=== PATIENT | male | born 1970 | race Caucasian/White ===

== ENCOUNTER 2017-12-27 08:12 | Inpatient (IN) | payer OTHER ==
[~2017-12-27] VITALS: Ht 167.6 cm; Wt 83.1 kg
[2017-12-27 08:56] LABS: BASOPHIL % 0.4 % (0-2); PLATELET COUNT 268 x10^3mcL (130-400); RED CELL DISTRIBUTION WIDTH 14.5 % (11.5-14.5)
[2017-12-27 09:30] LABS: T3 TOTAL 1.07 ng/mL
[2017-12-27 09:46] LABS: FREE T4 1.41 ng/dL (0.76-1.46); FREE THYROXINE INDEX 3.7 ug/dL (1.4-4.5); T4(THYROXINE) 9.8 ug/dL (4.7-13.3)
[2017-12-27 09:58] LABS: ALKALINE PHOSPHATASE 72 U/L (46-116); ALT/SGPT 12 U/L (16-63); AST/SGOT 16 U/L (15-37); BILIRUBIN TOTAL 0.19 mg/dL (0.20-1.00); CALCIUM 8.4 mg/dL (8.5-10.1); CARBON DIOXIDE 26.2 mmol/L (21-32); CHLORIDE SERUM 105 mmol/L (98-107); CREATININE SERUM 0.5 mg/dL (0.7-1.3); GFR1 > 60 mL/min; GLUCOSE SERUM 87 mg/dL (74-106); HDL CHOLESTEROL 42 mg/dL (40-60); LIPASE 147 IU/L (73-393); POTASSIUM SERUM 4.1 mmol/L (3.5-5.1); SODIUM SERUM 141 mmol/L (136-145); TOTAL PROTEIN, SERUM 7.1 g/dL (6.4-8.2); TRIGLYCERIDES 78 mg/dL (<150)
[2017-12-27 10:05] LABS: ALBUMIN 3.3 g/dL (3.4-5.0); CHOLESTEROL 105 mg/dL (<200); CHOLESTEROL/HDL RATIO 2.5
[2017-12-27] MEDS ORDERED: GABAPENTIN100 M2 PO (10:38)
[2017-12-27] MEDS ORDERED: ACETAMINOPHEN-H1 TA1 PO (10:39)
[2017-12-27] MEDS ORDERED: FOL1 PO (10:40)
[2017-12-27] MEDS ORDERED: ZESTRIL5 MG PO (10:40)
[2017-12-27] MEDS ORDERED: CARVEDILOL3.125 M1 PO (10:40)
[2017-12-27] MEDS ORDERED: ATORVASTATIN CA40 M1 PO (10:41)
[2017-12-27] MEDS ORDERED: ASPIR 8181 MG PO (10:41)
[2017-12-27] MEDS ORDERED: BRILINTA90 M1 PO (10:41)
[2017-12-27] MEDS ORDERED: GOOD NEIGHBOR P20 M2 PO (10:42)
[2017-12-27] MEDS ORDERED: PREDNISONE1 MG PO (10:43)
[2017-12-27 10:54] LABS: microscopic required? NO
[2017-12-27 11:28] VITALS: BP 119/71
[2017-12-27 11:34] VITALS: BP 119/71
[2017-12-27 11:39] LABS: MAGNESIUM 1.8 mg/dL (1.8-2.4); PHOSPHOROUS 3.7 mg/dL (2.5-4.9)
[2017-12-27 11:58] LABS: AMPHETAMINE QUAL UR NONE DETECTED (NEG <=1000)
[2017-12-27 12:26] LABS: UA SPECIFIC GRAVITY 1.015 (1.005-1.035); urine erythrocyte NEGATIVE (NEGATIVE)
[2017-12-27 12:45] VITALS: BP 156/97
[2017-12-27 17:54] VITALS: BP 111/65
[2017-12-27 21:44] VITALS: BP 111/69
[2017-12-28] VITALS (12 sets, daily range): BP systolic 97–120; BP diastolic 55–77; Ht 167.6 cm; Wt 83.1 kg
[2017-12-28 07:10] LABS: CALCIUM 8.1 mg/dL (8.5-10.1); CARBON DIOXIDE 27.5 mmol/L (21-32); CHLORIDE SERUM 106 mmol/L (98-107); CREATININE SERUM 0.8 mg/dL (0.7-1.3); GFR1 > 60 mL/min; GLUCOSE SERUM 85 mg/dL (74-106); POTASSIUM SERUM 3.5 mmol/L (3.5-5.1); SODIUM SERUM 141 mmol/L (136-145)
[2017-12-28 08:19] LABS: BASOPHIL % 0 % (0-2); PLATELET COUNT 224 x10^3mcL (130-400); RED CELL DISTRIBUTION WIDTH 14.5 % (11.5-14.5)
== END 2017-12-28 19:35 | disposition home or self-care (01) | DRG 191 ==
LOC: ED 08:12 → DU 10:08
PROVIDERS: Family Medicine; Internal Medicine Interventional Cardiology; Specialist
PROC: B2111ZZ Fluoroscopy of Multiple Coronary Arteries using Low Osmolar Contrast (ICD-10-PCS; 2017-12-28)
PROC: 4A023N7 Measurement of Cardiac Sampling and Pressure, Left Heart, Percutaneous Approach (ICD-10-PCS; principal; 2017-12-28 09:00)
DX: I25.119 Atherosclerotic heart disease of native coronary artery with unspecified angina pectoris (principal); N17.0 Acute kidney failure with tubular necrosis; I10 Essential (primary) hypertension; M06.9 Rheumatoid arthritis, unspecified; E44.1 Mild protein-calorie malnutrition; E83.51 Hypocalcemia; E78.5 Hyperlipidemia, unspecified; Z95.5 Presence of coronary angioplasty implant and graft; I25.2 Old myocardial infarction; Z88.8 Allergy status to other drugs, medicaments and biological substances; Z68.29 Body mass index [BMI] 29.0-29.9, adult; Z82.49 Family history of ischemic heart disease and other diseases of the circulatory system; Z82.3 Family history of stroke
CPT/HCPCS: CLHCL; 83880; 84439; C1760; C1769; C1894; J1644; J1885; J2001; J2250; J2270; J2405; J3010; J7030; J7040; J7506; Q0092; Q9967

== ENCOUNTER 2017-12-30 09:00 | Inpatient (IN) | payer OTHER ==
[~2017-12-30] VITALS: Ht 167.6 cm; Wt 85.5 kg
[~2017-12-30 09:00] MED LIST: ACETAMINOPHEN-H1 TA1 PO; ASPIR 8181 MG PO; ATORVASTATIN CA40 M1 PO; BRILINTA90 M1 PO; CARVEDILOL3.125 M1 PO; FOL1 PO; GABAPENTIN100 M2 PO; GOOD NEIGHBOR P20 M2 PO; PREDNISONE1 MG PO; ZESTRIL5 MG PO
[2017-12-30 10:17] LABS: PLATELET COUNT 230 x10^3mcL (130-400); RED CELL DISTRIBUTION WIDTH 14.4 % (11.5-14.5)
[2017-12-30 10:21] LABS: CALCIUM 8.2 mg/dL (8.5-10.1); CHLORIDE SERUM 108 mmol/L (98-107); CREATININE SERUM 0.7 mg/dL (0.7-1.3); GFR1 > 60 mL/min; GLUCOSE SERUM 118 mg/dL (74-106); POTASSIUM SERUM 3.7 mmol/L (3.5-5.1); SODIUM SERUM 143 mmol/L (136-145)
[2017-12-30 10:25] LABS: ALKALINE PHOSPHATASE 48 U/L (46-116); ALT/SGPT 22 U/L (16-63); AST/SGOT 17 U/L (15-37); BILIRUBIN TOTAL 0.95 mg/dL (0.20-1.00)
[2017-12-30 10:26] LABS: ALBUMIN 2.6 g/dL (3.4-5.0); TOTAL PROTEIN, SERUM 5.7 g/dL (6.4-8.2)
[2017-12-30 10:54] LABS: BAND NEUTROPHIL 24 % (0-10); BASOPHIL 0 % (0-2); MONOCYTE 7 % (0-7); PLATELET MORPHOLOGY PLATELETS NORMAL; SEGMENTED NEUTROPHILS 62 % (37-75)
[2017-12-30 13:15] LABS: MAGNESIUM 1.7 mg/dL (1.8-2.4)
[2017-12-30 13:35] VITALS: BP 108/72
[2017-12-30 14:19] VITALS: BP 119/74
[2017-12-30 17:05] VITALS: BP 125/77
[2017-12-30 21:06] VITALS: BP 108/67
[2017-12-30 21:52] LABS: microscopic required? YES; urine erythrocyte NEGATIVE (NEGATIVE)
[2017-12-30 22:00] LABS: AMPHETAMINE QUAL UR NONE DETECTED (NEG <=1000)
[2017-12-31 05:58] VITALS: BP 96/57
[2017-12-31 07:45] LABS: BASOPHIL % 0.1 % (0-2); PLATELET COUNT 251 x10^3mcL (130-400)
[2017-12-31 07:46] LABS: CALCIUM 7.8 mg/dL (8.5-10.1); CARBON DIOXIDE 26.7 mmol/L (21-32); CHLORIDE SERUM 106 mmol/L (98-107); CREATININE SERUM 0.8 mg/dL (0.7-1.3); GFR1 > 60 mL/min; GLUCOSE SERUM 107 mg/dL (74-106); MAGNESIUM 2.1 mg/dL (1.8-2.4); PHOSPHOROUS 3.1 mg/dL (2.5-4.9); POTASSIUM SERUM 3.3 mmol/L (3.5-5.1); SODIUM SERUM 142 mmol/L (136-145)
[2017-12-31 08:23] VITALS: BP 100/72
[2017-12-31 13:24] VITALS: BP 100/63
[2017-12-31 17:08] VITALS: BP 102/57
[2017-12-31 21:29] VITALS: BP 117/70
[2018-01-01 04:59] VITALS: BP 120/73
[2018-01-01 06:45] LABS: PLATELET COUNT 280 x10^3mcL (130-400); RED CELL DISTRIBUTION WIDTH 14.4 % (11.5-14.5)
[2018-01-01 06:53] LABS: CALCIUM 8.1 mg/dL (8.5-10.1); CARBON DIOXIDE 27.5 mmol/L (21-32); CHLORIDE SERUM 105 mmol/L (98-107); CREATININE SERUM 0.8 mg/dL (0.7-1.3); GFR1 > 60 mL/min; GLUCOSE SERUM 110 mg/dL (74-106); MAGNESIUM 2.1 mg/dL (1.8-2.4); PHOSPHOROUS 3.5 mg/dL (2.5-4.9); POTASSIUM SERUM 3.7 mmol/L (3.5-5.1); SODIUM SERUM 142 mmol/L (136-145)
[2018-01-01 06:57] LABS: BASOPHIL % 0 % (0-2)
[2018-01-01 08:36] VITALS: BP 117/73
[2018-01-01 13:58] VITALS: BP 206/86
[2018-01-01 14:00] VITALS: BP 96/55
[2018-01-01 16:29] VITALS: Ht 167.6 cm; Wt 85.5 kg
[2018-01-01 18:59] VITALS: BP 99/53
[2018-01-01 22:05] VITALS: BP 95/55
[2018-01-02 06:37] VITALS: BP 115/69
[2018-01-02 06:44] LABS: BASOPHIL % 0.2 % (0-2); PLATELET COUNT 280 x10^3mcL (130-400); RED CELL DISTRIBUTION WIDTH 14.4 % (11.5-14.5)
[2018-01-02 07:04] LABS: CALCIUM 7.8 mg/dL (8.5-10.1); CARBON DIOXIDE 29.7 mmol/L (21-32); CHLORIDE SERUM 107 mmol/L (98-107); CREATININE SERUM 0.8 mg/dL (0.7-1.3); GFR1 > 60 mL/min; GLUCOSE SERUM 83 mg/dL (74-106); POTASSIUM SERUM 3.4 mmol/L (3.5-5.1); SODIUM SERUM 144 mmol/L (136-145)
[2018-01-02 08:46] VITALS: BP 112/85
[2018-01-02 13:20] VITALS: BP 111/76
[2018-01-02 16:35] VITALS: BP 112/69
[2018-01-02 20:03] VITALS: BP 99/69
[2018-01-03 05:07] VITALS: BP 128/82
[2018-01-03 06:17] LABS: BASOPHIL % 0.2 % (0-2); PLATELET COUNT 277 x10^3mcL (130-400); RED CELL DISTRIBUTION WIDTH 14.4 % (11.5-14.5)
[2018-01-03 06:26] LABS: CALCIUM 8.2 mg/dL (8.5-10.1); CARBON DIOXIDE 26.3 mmol/L (21-32); CHLORIDE SERUM 105 mmol/L (98-107); CREATININE SERUM 0.8 mg/dL (0.7-1.3); GFR1 > 60 mL/min; GLUCOSE SERUM 85 mg/dL (74-106); POTASSIUM SERUM 4.2 mmol/L (3.5-5.1); SODIUM SERUM 140 mmol/L (136-145)
[2018-01-03 09:30] VITALS: BP 109/76
[2018-01-03 14:22] VITALS: BP 110/65
[2018-01-03 17:20] VITALS: BP 108/72
[2018-01-03 21:16] VITALS: BP 109/63
[2018-01-04 05:51] VITALS: BP 120/62
[2018-01-04 06:45] LABS: BASOPHIL % 0.1 % (0-2); PLATELET COUNT 301 x10^3mcL (130-400); RED CELL DISTRIBUTION WIDTH 13.9 % (11.5-14.5)
[2018-01-04 07:17] LABS: CALCIUM 8.2 mg/dL (8.5-10.1); CARBON DIOXIDE 26.7 mmol/L (21-32); CHLORIDE SERUM 105 mmol/L (98-107); CREATININE SERUM 0.8 mg/dL (0.7-1.3); GFR1 > 60 mL/min; GLUCOSE SERUM 87 mg/dL (74-106); POTASSIUM SERUM 3.9 mmol/L (3.5-5.1); SODIUM SERUM 140 mmol/L (136-145)
[2018-01-04] MEDS ORDERED: LEVAQUIN750 MG PO (07:51)
[2018-01-04] MEDS ORDERED: CLEOCIN HCL300 MG PO (07:51)
[2018-01-04] MEDS ORDERED: TESSALON PERLE100 MG PO (08:13)
[2018-01-04] MEDS ORDERED: LAC PO (08:13)
[2018-01-04 09:14] VITALS: BP 102/71
[2018-01-04 09:56] VITALS: BP 102/71
== END 2018-01-04 14:21 | disposition home or self-care (01) | DRG 137 ==
LOC: ED 09:00 → DU 11:35
PROVIDERS: Emergency Medicine; Family Medicine
DX: J69.0 Pneumonitis due to inhalation of food and vomit (principal); J96.00 Acute respiratory failure, unspecified whether with hypoxia or hypercapnia; N17.0 Acute kidney failure with tubular necrosis; E43 Unspecified severe protein-calorie malnutrition; I10 Essential (primary) hypertension; M06.9 Rheumatoid arthritis, unspecified; I25.10 Atherosclerotic heart disease of native coronary artery without angina pectoris; E78.5 Hyperlipidemia, unspecified; K21.9 Gastro-esophageal reflux disease without esophagitis; Z82.3 Family history of stroke; Z82.49 Family history of ischemic heart disease and other diseases of the circulatory system; Z87.891 Personal history of nicotine dependence; F12.10 Cannabis abuse, uncomplicated; J44.1 Chronic obstructive pulmonary disease with (acute) exacerbation; K80.20 Calculus of gallbladder without cholecystitis without obstruction; E83.42 Hypomagnesemia; E83.39 Other disorders of phosphorus metabolism; J90 Pleural effusion, not elsewhere classified; Z68.30 Body mass index [BMI] 30.0-30.9, adult
CPT/HCPCS: 83880; 85378; 86480; 86580; 87116; 87206; 94150; C9113; G0480; J1885; J1940; J1956; J2543; J2930; J3475; J3490; J7030; J7506; J7613; J7620; J7644; Q0092; Q9967

== ENCOUNTER 2018-11-12 10:12 | Emergency (ER) | payer OTHER ==
[~2018-11-12] VITALS: Ht 167.6 cm; Wt 87.1 kg
[~2018-11-12 10:12] MED LIST changes: +CLEOCIN HCL300 MG PO; +LAC PO; +LEVAQUIN750 MG PO; +TESSALON PERLE100 MG PO
[2018-11-12 10:23] VITALS: Ht 167.6 cm; Wt 87.1 kg
[2018-11-12 11:22] LABS: BASOPHIL % 0.8 % (0-2); PLATELET COUNT 270 x10^3mcL (130-400)
[2018-11-12 11:34] LABS: CALCIUM 8.3 mg/dL (8.5-10.1); CARBON DIOXIDE 26.2 mmol/L (21-32); CHLORIDE SERUM 104 mmol/L (98-107); CREATININE SERUM 1.1 mg/dL (0.7-1.3); GFR1 > 60 mL/min; GLUCOSE SERUM 102 mg/dL (74-106); POTASSIUM SERUM 3.5 mmol/L (3.5-5.1); SODIUM SERUM 137 mmol/L (136-145)
[2018-11-12 11:36] LABS: RED CELL DISTRIBUTION WIDTH 15.2 % (11.5-14.5)
[2018-11-12 11:39] LABS: ALBUMIN 3.7 g/dL (3.4-5.0); ALKALINE PHOSPHATASE 45 U/L (46-116); ALT/SGPT 39 U/L (16-63); AST/SGOT 27 U/L (15-37); BILIRUBIN TOTAL 1.6 mg/dL (0.20-1.00); LIPASE 177 IU/L (73-393); TOTAL PROTEIN, SERUM 6.6 g/dL (6.4-8.2)
[2018-11-12 12:29] LABS: microscopic required? NO
[2018-11-12 12:40] LABS: UA SPECIFIC GRAVITY >=1.030 (1.005-1.035); urine erythrocyte NEGATIVE (NEGATIVE)
[2018-11-12 12:49] LABS: AMPHETAMINE QUAL UR NONE DETECTED (See below)
[2018-11-12 14:40] VITALS: BP 115/71
== END 2018-11-12 14:40 | disposition home or self-care (01) ==
LOC: ED 10:12
PROVIDERS: Emergency Medicine
DX: K80.20 Calculus of gallbladder without cholecystitis without obstruction (principal); R11.10 Vomiting, unspecified; R19.7 Diarrhea, unspecified; I10 Essential (primary) hypertension; Z98.84 Bariatric surgery status; Z98.890 Other specified postprocedural states; Z88.8 Allergy status to other drugs, medicaments and biological substances
CPT/HCPCS: 87804; J1885; J2405; J7030

== ENCOUNTER 2019-01-07 17:22 | Emergency (ER) | payer OTHER ==
[~2019-01-07] VITALS: Ht 167.6 cm; Wt 90.7 kg
[2019-01-07 17:46] VITALS: BP 124/79; Ht 167.6 cm; Wt 90.7 kg
== END 2019-01-07 18:51 | disposition home or self-care (01) ==
LOC: ED 17:22
DX: K64.4 Residual hemorrhoidal skin tags (principal); K92.89 Other specified diseases of the digestive system; I10 Essential (primary) hypertension; Z88.8 Allergy status to other drugs, medicaments and biological substances; Z95.5 Presence of coronary angioplasty implant and graft

== ENCOUNTER 2019-01-09 08:06 | Emergency (ER) | payer OTHER ==
[~2019-01-09] VITALS: Ht 167.6 cm; Wt 88.9 kg
[2019-01-09 08:12] VITALS: Ht 167.6 cm; Wt 88.9 kg
[2019-01-09 09:49] VITALS: BP 122/70
== END 2019-01-09 09:49 | disposition home or self-care (01) ==
LOC: ED 08:06
DX: K64.5 Perianal venous thrombosis (principal); K62.89 Other specified diseases of anus and rectum; I10 Essential (primary) hypertension; E78.00 Pure hypercholesterolemia, unspecified; Z79.02 Long term (current) use of antithrombotics/antiplatelets; Z98.890 Other specified postprocedural states

== ENCOUNTER 2020-04-21 12:07 | Inpatient (IN) | payer OTHER ==
[~2020-04-21] VITALS: Ht 167.6 cm; Wt 89.8 kg
[2020-04-21 12:09] VITALS: Ht 167.6 cm; Wt 89.8 kg
[2020-04-21 13:34] LABS: BASOPHIL % 0.3 % (0-2)
[2020-04-21 13:41] LABS: PLATELET COUNT 452 x10^3mcL (130-400); RED CELL DISTRIBUTION WIDTH 14.6 % (11.5-14.5)
[2020-04-21 13:46] LABS: CALCIUM 8.5 mg/dL (8.5-10.1); CARBON DIOXIDE 27.6 mmol/L (21-32); CHLORIDE SERUM 103 mmol/L (98-107); CREATININE SERUM 0.9 mg/dL (0.7-1.3); GFR1 > 60 mL/min; GLUCOSE SERUM 116 mg/dL (74-106); POTASSIUM SERUM 3.8 mmol/L (3.5-5.1); SODIUM SERUM 140 mmol/L (136-145)
[2020-04-21 13:51] LABS: ALKALINE PHOSPHATASE 71 U/L (46-116); ALT/SGPT 23 U/L (16-63); AST/SGOT 17 U/L (15-37); BILIRUBIN TOTAL 0.5 mg/dL (0.20-1.00); TOTAL PROTEIN, SERUM 6.7 g/dL (6.4-8.2)
[2020-04-21 13:52] LABS: ALBUMIN 3.2 g/dL (3.4-5.0)
[2020-04-21 15:43] VITALS: BP 128/85
[2020-04-21 15:56] VITALS: BP 130/76
[2020-04-21 16:00] LABS: CHOLESTEROL/HDL RATIO 2.6
[2020-04-21 19:20] VITALS: BP 135/85
[2020-04-22 05:37] VITALS: BP 145/96
[2020-04-22 06:25] LABS: microscopic required? NO
[2020-04-22 07:09] LABS: UA SPECIFIC GRAVITY 1.025 (1.005-1.035); urine erythrocyte NEGATIVE (NEGATIVE)
[2020-04-22 07:23] LABS: BASOPHIL % 0.3 % (0-2); PLATELET COUNT 393 x10^3mcL (130-400); RED CELL DISTRIBUTION WIDTH 14.4 % (11.5-14.5)
[2020-04-22 07:52] LABS: CALCIUM 8.6 mg/dL (8.5-10.1); CARBON DIOXIDE 26.9 mmol/L (21-32); CHLORIDE SERUM 102 mmol/L (98-107); CREATININE SERUM 0.8 mg/dL (0.7-1.3); GFR1 > 60 mL/min; GLUCOSE SERUM 123 mg/dL (74-106); MAGNESIUM 1.9 mg/dL (1.8-2.4); PHOSPHOROUS 3.5 mg/dL (2.5-4.9); POTASSIUM SERUM 3.8 mmol/L (3.5-5.1); SODIUM SERUM 138 mmol/L (136-145)
[2020-04-22 08:24] VITALS: BP 136/90
[2020-04-22 16:15] VITALS: BP 106/69
[2020-04-22 20:11] VITALS: BP 104/66
[2020-04-23 05:41] VITALS: BP 108/63
[2020-04-23 07:15] LABS: CALCIUM 7.9 mg/dL (8.5-10.1); CARBON DIOXIDE 29.8 mmol/L (21-32); CHLORIDE SERUM 101 mmol/L (98-107); GFR1 > 60 mL/min; GLUCOSE SERUM 123 mg/dL (74-106); MAGNESIUM 1.8 mg/dL (1.8-2.4); PHOSPHOROUS 2.6 mg/dL (2.5-4.9); POTASSIUM SERUM 4.4 mmol/L (3.5-5.1); SODIUM SERUM 137 mmol/L (136-145)
[2020-04-23 07:29] LABS: PLATELET COUNT 355 x10^3mcL (130-400)
[2020-04-23 07:44] LABS: BASOPHIL % 0 % (0-2); RED CELL DISTRIBUTION WIDTH 14.9 % (11.5-14.5)
[2020-04-23 09:09] VITALS: BP 110/71
[2020-04-23 13:24] VITALS: BP 91/51
[2020-04-23 17:43] VITALS: BP 90/57
[2020-04-23 20:05] VITALS: BP 85/57
[2020-04-24 05:45] VITALS: BP 94/62
[2020-04-24 07:43] LABS: BASOPHIL % 0.5 % (0-2); PLATELET COUNT 303 x10^3mcL (130-400); RED CELL DISTRIBUTION WIDTH 14.4 % (11.5-14.5)
[2020-04-24 07:55] LABS: CALCIUM 7.6 mg/dL (8.5-10.1); CARBON DIOXIDE 29.9 mmol/L (21-32); CHLORIDE SERUM 103 mmol/L (98-107); CREATININE SERUM 0.7 mg/dL (0.7-1.3); GFR1 > 60 mL/min; GLUCOSE SERUM 102 mg/dL (74-106); POTASSIUM SERUM 4.5 mmol/L (3.5-5.1); SODIUM SERUM 138 mmol/L (136-145)
[2020-04-24 08:27] VITALS: BP 103/59
[2020-04-24] MEDS ORDERED: ATORVASTATIN CA40 M1 PO (12:14)
[2020-04-24] MEDS ORDERED: KEFLEX500 M1 PO (12:14)
[2020-04-24] MEDS ORDERED: VITAMIN D-40400 UNIT PO (12:15)
[2020-04-24] MEDS ORDERED: APAP/HYDROCODON1 T13 PO (12:59)
[2020-04-24] MEDS ORDERED: TOR10 PO (13:41)
[2020-04-24 13:58] VITALS: BP 103/59
== END 2020-04-24 15:05 | disposition home or self-care (01) | DRG 308 ==
LOC: ED 12:07 → MU 13:28
PROVIDERS: Emergency Medicine; Family Medicine; Orthopaedic Surgery; ADMIT Student in an Organized Health Care Education/Training Program; ATTEND Student in an Organized Health Care Education/Training Program
PROC: 0QS706Z Reposition Left Upper Femur with Intramedullary Internal Fixation Device, Open Approach (ICD-10-PCS; principal; 2020-04-22 12:00)
DX: S72.142A Displaced intertrochanteric fracture of left femur, initial encounter for closed fracture (principal); E78.5 Hyperlipidemia, unspecified; W17.89XA Other fall from one level to another, initial encounter; M06.9 Rheumatoid arthritis, unspecified; I25.10 Atherosclerotic heart disease of native coronary artery without angina pectoris; K21.9 Gastro-esophageal reflux disease without esophagitis; Y93.89 Activity, other specified; Y92.89 Other specified places as the place of occurrence of the external cause; Y99.8 Other external cause status; Z79.899 Other long term (current) drug therapy; Z88.8 Allergy status to other drugs, medicaments and biological substances; Z82.3 Family history of stroke; Z82.49 Family history of ischemic heart disease and other diseases of the circulatory system; Z79.01 Long term (current) use of anticoagulants
CPT/HCPCS: 76001; 97116-GP; 97530-GP; G0378; J0690; J1170; J1885; J2270; J2405; J3010; J3480; J3490; J7050; Q0092; U0003-CS

== ENCOUNTER 2020-06-08 03:03 | Emergency (ER) | payer OTHER ==
[~2020-06-08] VITALS: Ht 167.6 cm; Wt 85.0 kg
[~2020-06-08 03:03] MED LIST changes: +APAP/HYDROCODON1 T13 PO; +KEFLEX500 M1 PO; +TOR10 PO; +VITAMIN D-40400 UNIT PO
[2020-06-08 03:10] VITALS: Ht 167.6 cm; Wt 85.0 kg
[2020-06-08 04:37] LABS: BASOPHIL % 0.8 % (0-2); PLATELET COUNT 368 x10^3mcL (130-400)
[2020-06-08 04:38] LABS: RED CELL DISTRIBUTION WIDTH 15.8 % (11.5-14.5)
[2020-06-08 05:06] LABS: CALCIUM 8.5 mg/dL (8.5-10.1); CARBON DIOXIDE 34.1 mmol/L (21-32); CHLORIDE SERUM 105 mmol/L (98-107); CREATININE SERUM 1.1 mg/dL (0.7-1.3); GFR1 > 60 mL/min; GLUCOSE SERUM 99 mg/dL (74-106); POTASSIUM SERUM 3.7 mmol/L (3.5-5.1); SODIUM SERUM 141 mmol/L (136-145)
[2020-06-08 05:11] LABS: ALKALINE PHOSPHATASE 71 U/L (46-116); ALT/SGPT 22 U/L (16-63); AST/SGOT 20 U/L (15-37); BILIRUBIN TOTAL 0.49 mg/dL (0.20-1.00); LIPASE 131 IU/L (73-393); TOTAL PROTEIN, SERUM 6.4 g/dL (6.4-8.2)
[2020-06-08 05:12] LABS: ALBUMIN 3.1 g/dL (3.4-5.0)
[2020-06-08 07:19] LABS: microscopic required? YES; urine erythrocyte 2+ (NEGATIVE)
[2020-06-08 07:57] VITALS: BP 120/84
== END 2020-06-08 07:57 | disposition home or self-care (01) ==
LOC: ED 03:03
PROVIDERS: Emergency Medicine
DX: N20.2 Calculus of kidney with calculus of ureter (principal); R31.9 Hematuria, unspecified; Z98.890 Other specified postprocedural states
CPT/HCPCS: J1885; J2405

== ENCOUNTER 2020-06-16 15:27 | Emergency (ER) | payer OTHER ==
[~2020-06-16] VITALS: Ht 167.6 cm; Wt 81.6 kg
[2020-06-16 15:44] VITALS: Ht 167.6 cm; Wt 81.6 kg
[2020-06-16 17:29] VITALS: BP 117/79
== END 2020-06-16 17:29 | disposition home or self-care (01) ==
LOC: ED 15:27
DX: N20.0 Calculus of kidney (principal); I10 Essential (primary) hypertension; Z88.8 Allergy status to other drugs, medicaments and biological substances
CPT/HCPCS: Q0092